=== PATIENT | male | born 1985 | race African-American/Black ===

== ENCOUNTER 2023-09-19 02:45 | Emergency (ER) | payer OTHER ==
[2023-09-19 03:16] VITALS: TEMP 98.2
--- NOTE | 2023-09-19 05:18 | ED ---
Extremity Problem HPI - General Chief complaint: Extremity Problem,Nontraumatic Stated complaint: left foot pain Time Seen by Provider: 09/19/23 03:05 Source: patient Mode of arrival: ambulatory Limitations: no limitations - History of Present Illness Initial comments: 38-year-old male who presents emergency department reporting left ankle pain. States he has chronic left ankle pain from a previous injury. States that he broke his ankle and never had it surgically repaired. States that he has been walking a lot and has had worsening pain. He denies any new injuries. He has not taken any pain medications. Denies any redness, pustular drainage or fevers. No knee or hip pain. No other alleviating, precipitating or modifying factors - Related Data Previous Rx's Medication Instructions Recorded Ketorolac [Toradol] 10 mg PO Q8HR PRN #15 tab 09/19/23 Allergies Allergy/AdvReac Type Severity Reaction Status Date / Time No Known Allergies Allergy Verified 09/19/23 03:07 Review of Systems ROS Statement: Those systems with pertinent positive or pertinent negative responses have been documented in the HPI. ROS Other: All systems not noted in ROS Statement are negative. Past Medical History Past Medical History: No Reported History History of Any Multi-Drug Resistant Organisms: None Reported Past Surgical History: Orthopedic Surgery Additional Past Surgical History / Comment(s): repair to left arm and ankle Past Psychological History: No Psychological Hx Reported Smoking Status: Current every day smoker Past Alcohol Use History: Occasional Past Drug Use History: None Reported General Exam Limitations: no limitations General appearance: alert, in no apparent distress Head exam: Present: atraumatic, normocephalic, normal inspection Extremities exam: Present: other (Patient has tenderness to palpation of the lateral ankle. No erythema, swelling. 2+ DP and PT pulses. Compartments are soft) Course Vital Signs 09/19/23 09/19/23 02:59 05:45 Temperature 98.2 F Pulse Rate 62 56 L Respiratory 18 16 Rate Blood Pressure 113/77 101/61 O2 Sat by Pulse 97 98 Oximetry Medical Decision Making - Medical Decision Making Was pt. sent in by a medical professional or institution (, [facility], MUSIC COPYIST, urgent care, hospital, or correction...) When possible be specific @ -No Did you speak to anyone other than the patient for history (EMS, parent, family, police, friend...)? What history was obtained from this source @ -No Did you review nursing and triage notes (agree or disagree)? Why? @ -I reviewed and agree with nursing and triage notes Were old charts reviewed (outside hosp., previous admission, EMS record, old EKG, old radiological studies, urgent care reports/EKG's, correction records)? Report findings @ -No old charts were reviewed Differential Diagnosis (chest pain, altered mental status, abdominal pain women, abdominal pain men, vaginal bleeding, weakness, fever, dyspnea, syncope, headache, dizziness, GI bleed, back pain, seizure, CVA, palpatations, mental health, musculoskeletal)? @ -Differential Musculoskeletal Muscular strain, contusion, ligament sprain, fracture, arthritis, septic arthritis, bursitis, cellulitis, muscle spasm, nerve compression, DVT, arterial occlusion, herpes zoster, electrolyte abnormality, tumor.... This is not meant to be in all inclusive list EKG interpreted by me (3pts min.). @ -Not done X-rays interpreted by me (1pt min.). @ -Yes and demonstrates old trimalar fracture. No acute injuries CT interpreted by me (1pt min.). @ -None done U/S interpreted by me (1pt. min.). @ -None done What testing was considered but not performed or refused? (CT, X-rays, U/S, labs)? Why? @ -None What meds were considered but not given or refused? Why? @ -None Did you discuss the management of the patient with other professionals (professionals i.e. , PA, MUSIC COPYIST, lab, RT, psych nurse, social work assistant, bank examiner, teacher, public health service officer, rn field case manager)? Give summary @ -No Was smoking cessation discussed for >3mins.? @ -No Was critical care preformed (if so, how long)? @ -No Were there social determinants of health that impacted care today? How? (Homelessness, low income, unemployed, alcoholism, drug addiction, transportation, low edu. Level, literacy, decrease access to med. care, long term, rehab)? @ -No Was there de-escalation of care discussed even if they declined (Discuss DNR or withdrawal of care, Hospice)? DNR status @ -No What co-morbidities impacted this encounter? (DM, HTN, Smoking, COPD, CAD, Cancer, CVA, ARF, Chemo, Hep., AIDS, mental health diagnosis, sleep apnea, morbid obesity)? @ -None Was patient admitted / discharged? Hospital course, mention meds given and route, prescriptions, significant lab abnormalities, going to OR and other pertinent info. @ -Upon arrival patient was seen and evaluated in room 29. Thorough history and physical exam was performed. Patient was given a shot of Toradol. He is sent for x-ray imaging. Does not demonstrate any acute fractures. At this time patient will be discharged home. He will be prescribed Toradol. Take medications as directed and follow-up with orthopedic surgeon. Return for any new or worsening symptoms. Patient agreeable to plan he was discharged in stable condition Undiagnosed new problem with uncertain prognosis? @ -No Drug Therapy requiring intensive monitoring for toxicity (Heparin, Nitro, Insulin, Cardizem)? @ -No Were any procedures done? @ -No Diagnosis/symptom? @ -Acute exacerbation of chronic left ankle pain Acute, or Chronic, or Acute on Chronic? @ -Acute on chronic Uncomplicated (without systemic symptoms) or Complicated (systemic symptoms)? @ -Uncomplicated Side effects of treatment? @ -No Exacerbation, Progression, or Severe Exacerbation? @ -No Poses a threat to life or bodily function? How? (Chest pain, USA, VT, pneumonia, PE, COPD, DKA, ARF, appy, cholecystitis, CVA, Diverticulitis, Homicidal, Suicidal, threat to staff... and all critical care pts) @ -No Disposition Clinical Impression: Left ankle pain Disposition: HOME SELF-CARE Condition: Stable Instructions (If sedation given, give patient instructions): Ankle Sprain (ED) Additional Instructions: Please take the pain medications as directed. Follow-up with your primary care doctor. You may need to see an orthopedic surgeon if your pain persists Prescriptions: Ketorolac [Toradol] 10 mg PO Q8HR PRN #15 tab PRN Reason: Pain Is patient prescribed a controlled substance at d/c from ED?: No Referrals: None,Stated [Primary Care Provider] - 1-2 days Mouna Carrillo DO [Doctor of Osteopathic Medicine] - 1-2 days Time of Disposition: 05:21
[2023-09-19] MEDS: KETOROLAC 15 MG/ML 1 ML VIAL IM STA (05:42)
--- NOTE | 2023-09-19 07:17 | XR ---
EXAM: XR Left Ankle Complete, 3 Views CLINICAL HISTORY: pain TECHNIQUE: Frontal, lateral and oblique views of the left ankle. COMPARISON: No relevant prior studies available. FINDINGS: Bones/joints: Osteopenia. Evidence of old trimalleolar fractures. 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 Soft tissues: Mild soft tissue swelling at the ankle. IMPRESSION: Osteopenia, age appropriate. No acute fracture or subluxation.
[2023-09-19 07:35] VITALS: BP 101/61; PULSE 56; RESP 16
== END 2023-09-19 06:11 | disposition home or self-care (01) ==
LOC: EC 02:45
DX: G89.29 Other chronic pain (principal); M25.572 Pain in left ankle and joints of left foot; F17.200 Nicotine dependence, unspecified, uncomplicated
CPT/HCPCS: 73610; 99283; 96372; J1885